=== PATIENT | female | born 1955 | race Caucasian/White ===

== ENCOUNTER → 2020-01-31 | Outpatient (CLI) | payer BC, OTHER ==
[~2020-01-31] MED LIST: CATHETER FLUSH 10 ML SYR IV PRN
--- NOTE | 2020-01-31 12:06 | Diagnostic Imaging Report ---
INDICATION: Right upper quadrant pain. Patient was administered 5.6 mCi technetium 99m Choletec intravenously and imaging over the abdomen was performed. At 45 minutes patient ingested 8 ounces of ensure and a gallbladder ejection fraction was calculated. Patient denied discomfort during the exam. There is homogeneous uptake of activity by the liver with prompt excretion of activity into the gallbladder and common duct. Normal passage of activity into the small bowel is noted. There is a moderate amount of gastric activity consistent with bile reflux into the stomach. Gallbladder ejection fraction is normal at 61%. IMPRESSION: 1. Patent cystic duct and common bile duct. 2. Normal gallbladder ejection fraction of 61%. 3. Findings consistent with bile reflux into the stomach. Dictated by: Dictated on workstation # [id number]
== END ==
LOC: CARD 09:15
PROVIDERS: ATTEND Family Medicine
DX: R10.11 Right upper quadrant pain (principal)
CPT/HCPCS: 78227; A9537

== ENCOUNTER → 2021-10-22 | Outpatient (CLI) | payer OTHER ==
[2021-10-22 12:08] VITALS: BP 139/82
--- NOTE | 2021-10-22 12:08 | Cardiology Stress Test Report ---
Stress Test Report Date of Procedure/Referring: Date of Procedure: October 22, 2021 PCP No,Local Physician Admitting Physician Admitting Physician: Attending Physician: Amos Girard Jr, MD Indications: Abnormal electrocardiogram Baseline Heart Rate: 74 Baseline Blood Pressure: Blood Pressure Systolic: 139 Blood Pressure Diastolic: 82 Baseline EKG: Baseline EKG: Sinus rhythm with small lateral Q waves. Summary/Conclusion: PROCEDURE: The patient was exercised for a total of 3 minutes of the standard Charbel protocol achieving a maximum MET level of 4.6. The resting heart rate was 74 bpm and the peak heart rate was 127 bpm which represents 81% of the maximum predicted heart rate. The resting blood pressure was 139/82 mmHg and the peak blood pressure was 178/91 mmHg. This represents a blunted heart rate and a normal blood pressure response to exercise. The test was stopped due to fatigue. There was no exercise-induced chest discomfort, arrhythmias, or electrocardiogram changes during the test. The patient exhibited fair exercise capacity for age. IMPRESSION: 1. Suboptimal heart rate and normal blood pressure response to exercise. 2. There was no chest discomfort, arrhythmias or electrocardiogram changes during the test. 3. The patient exhibited fair exercise capacity for age at 3 minutes of the Charbel protocol. 4. This is a normal test although the patient did not attain the target heart rate. As such, coronary ischemia cannot be reliably excluded. Certain portions of this document may have been dictated utilizing voice recognition technology. Inherent to this technology, typographical and grammatical errors may exist. As much as I am diligent to identify and correct these mistakes, some errors may remain in the document. AMOS GIRARD JR, MD October 22, 2021 12:08
== END ==
LOC: CARD 08:43
PROVIDERS: ATTEND Internal Medicine Cardiovascular Disease
DX: R94.31 Abnormal electrocardiogram [ECG] [EKG] (principal); R07.9 Chest pain, unspecified
CPT/HCPCS: 93017; 93306

== ENCOUNTER → 2021-10-29 | Outpatient (CLI) | payer OTHER ==
--- NOTE | 2021-10-29 15:53 | Diagnostic Imaging Report ---
INDICATION: Left arm and leg pain. COMPARISON: None. FINDINGS: Frontal, lateral, open-mouth, and oblique radiographic views of the cervical spine were obtained. Cervical spine is seen down to the C7-T1 level on the lateral view. Evaluation of the static alignment shows straightening of normal lordotic curvature. There is also slight grade 1 retrolisthesis at C5-C6 and C6-C7. There is no evidence of jumped facets. Open-mouth view shows normal C1-C2 relationship. Vertebral body heights are maintained. There is no acute fracture. Multilevel degenerative changes are noted and are greatest at the C5-C6 and C6-C7 levels where there is intervertebral disc height loss with anterior and posterior endplate osteophyte formations. Oblique views also show uncovertebral hypertrophy with associated facet arthropathy resulting in severe left-sided neural foraminal stenosis at C5-C6 and C6-C7. Surrounding soft tissue structures are unremarkable. Included portions of the lung apices are clear. IMPRESSION: 1. No acute fracture or dislocation of the cervical spine. 2. Degenerative changes of the cervical spine, greatest at the C5-C6 and C6-C7 levels as well. Dictated by: Dictated on workstation # [id number]
== END ==
LOC: RAD 14:32
PROVIDERS: ATTEND Internal Medicine Cardiovascular Disease
DX: M47.812 Spondylosis without myelopathy or radiculopathy, cervical region (principal); M41.82 Other forms of scoliosis, cervical region
CPT/HCPCS: 72050

== ENCOUNTER → 2021-11-19 | Outpatient (CLI) | payer OTHER ==
[~2021-11-19] MED LIST changes: -CATHETER FLUSH 10 ML SYR IV PRN; +CATHETER FLUSH 10 ML SYR IVP PRN; +REGADENOSON 0.4 MG/5 ML SYR (LEXISCAN) IV ONE
[2021-11-19 12:17] VITALS: BP 189/93
--- NOTE | 2021-11-19 18:52 | NUCLEAR STRESS TEST ---
REGADENOSON NUCLEAR STRESS Date of procedure: 11/19/2021. Primary care provider: No local physician Admitting physician: Amos Girard Jr., MD. INDICATION: Abnormal stress test. BASELINE ELECTROCARDIOGRAM: Sinus rhythm with low voltage in the precordial leads, early transition and nonspecific T wave changes. STRESS TEST PROCEDURE: The patient was administered 0.4 mg of intravenous Regadenoson. The resting heart rate was 67 bpm and the peak heart rate was 99 bpm. The resting blood pressure was 189/93 mmHg and the minimum blood pressure was 130/82 mmHg. This represents a normal heart rate and a normal blood pressure response to Regadenoson with resting hypertension. The test was stopped due to the protocol. There was no chest discomfort during the test. There were no arrhythmias during the test. There were no significant stress induced electrocardiogram changes. NUCLEAR PROCEDURE: The patient was administered 10.5 mCi of intravenous technetium 99m Tetrofosmin at rest for the rest images. The patient was subsequently administered 32.5 mCi of intravenous technetium 99m Tetrofosmin at peak stress for the stress images. Following an appropriate wait after each injection, imaging was obtained. The images were subsequently processed and reformatted in the usual views. Gated imaging was obtained. The image quality was adequate with a mild degree of gastrointestinal attenuation artifact. CT attenuation correction was used as a adjunct to standard imaging. Both the corrected and uncorrected images were reviewed for interpretation. NUCLEAR RESULTS: There was normal myocardial perfusion in all segments without evidence of infarction or ischemia. There was normal left ventricular chamber size with an end-diastolic volume of 23 mL and an end-systolic volume of 7 mL. There was no evidence of transient ischemic dilatation. The TID ratio was 1.02. There was normal wall motion in all segments with a calculated ejection fraction of 71%. IMPRESSION: 1. Normal heart rate and blood pressure response to regadenoson with resting hypertension. 2. There was no chest discomfort, arrhythmias, or electrocardiogram changes during the test. 3. There was normal myocardial perfusion in all segments without evidence of infarction or ischemia. 4. There was normal wall motion in all segments with a calculated ejection fraction of 71%. Certain portions of this document may have been dictated utilizing voice recognition technology. Inherent to this technology, typographical and grammatical errors may exist. As much as I am diligent to identify and correct these mistakes, some errors may remain in the document. AMOS GIRARD JR, MD Nov 19, 2021 18:52
== END ==
LOC: CARD 11:30
PROVIDERS: ATTEND Internal Medicine Cardiovascular Disease
DX: R94.39 Abnormal result of other cardiovascular function study (principal)
CPT/HCPCS: 78452; 93017